=== PATIENT | female | born 1955 | race Caucasian/White ===

== ENCOUNTER 2016-09-25 09:53 | Inpatient (IN) | payer OTHER ==
[2016-09-14 13:52] VITALS: BMI 26.0
[~2016-09-25] VITALS: Ht 162.6 cm; Wt 70.5 kg
[~2016-09-25 09:53] MED LIST: AMLO-110 PO; ATROPINE SULFATE 0.1 MG/ML 5ML SYR IV PRN; CEFAZOLIN 2000 MG/60 ML D5W IV SCH; CeleBREX 200 MG CAP PO SCH; DOXY100C76 PO; EpHEDrine SULFATE INJ 50 MG/ML AMP IV PRN; HYDROmorphone INJ 1 MG/ML SYR IV PRN; LACTATED RINGER'S 1000ML 1,000 ML IV SCH; ONDANSETRON INJ 2 MG/ML 2 ML VIAL IV PRN; PREGABALIN 75 MG CAP PO SCH
[2016-09-25 10:25] VITALS: BP 160/86; PULSE 97; TEMP 36.8; O2SAT 97; Ht 162.6 cm; Wt 70.5 kg
[2016-09-25] MEDS ORDERED: MIDAZOLAM HCL 1 MG/ML 2ML VIAL ONE (11:29)
[2016-09-25] MEDS ORDERED: FENTANYL CITRATE INJ 50 MCG/1 ML 2 ML VIAL ONE ×3 (11:29→15:00)
[2016-09-25] MEDS ORDERED: ROCURONIUM BROMIDE 10 MG/ML 5 ML VIAL ONE ×2 (11:30→13:50)
[2016-09-25] MEDS ORDERED: PROPOFOL IV EMULSION 10 MG/ML 20 ML VIAL IV ONE (11:30)
[2016-09-25] MEDS ORDERED: ONDANSETRON INJ 2 MG/ML 2 ML VIAL ONE (11:30)
[2016-09-25] MEDS ORDERED: DEXAMETHASONE SOD INJ 4 MG/ML VIAL ONE (11:30)
[2016-09-25] MEDS ORDERED: LIDOCAINE HCL 2% 2 ML VIAL (20MG/ML) ONE (11:30)
--- NOTE | 2016-09-25 12:04 | History and Physical ---
History & Physical Date Sep 25, 2016. Chief Complaint LBP and BLE pain, L>R History of Present Illness The patient is a 61 year old female with complaints of above that are chronic and progressive. She has been treated conservatively without lasting relief on an outpatient basis. She denies numbness at rest. no weakness. quality of life is compromised. Her xrays and MRI show Lumbar degenerative scoliosis and spinal stenosis, with multielevel degen changes. Past Medical/Surgical History HTN OA Hyster L CTR Reflux Additional History Hepatic Disease: No Endocrine Disorder: No Kidney Disease: No Hypertension: Yes Heart Disease: No Bleeding Tendencies: No Infectious Diseases: No Allergies Coded Allergies: No Known Allergies (Unverified , 09/25/16) Home Medications Scheduled Amlodipine (Norvasc), 5 MG PO HS Scheduled PRN Doxycycline Monohydrate (Monodox), 100 MG PO UD PRN for RN Physical Examination Skin: warm/dry Eyes: normal inspection, sclerae normal ENT: normal ENT inspection Head: normocephalic, atraumatic Neck: supple, trachea midline Respiratory/Chest: lungs clear, no respiratory distress Cardiovascular: regular rate, rhythm Back: normal inspection Extremities: normal inspection, normal range of motion Neurologic/Psych: no motor/sensory deficits, alert, normal reflexes, oriented x 3 Diagnosis L3-5 stenosis, lumbar scoliosis Plan of Treatment L3-5 decompression, L2-S1 PSF
[2016-09-25] MEDS ORDERED: OXYC-57 PO (12:15)
[2016-09-25] MEDS ORDERED: THROMBIN FOR SOLN 20000 UNIT KIT ONE ×3 (12:16→13:17)
--- NOTE | 2016-09-25 12:16 | Discharge Instructions ---
Discharge Instructions Admission Reason for Admission: Lumbar Spinal Stenosis Discharge Discharge Diagnosis / Problem: Lumbar Stenosis Discharge Goals Goal(s): Decrease discomfort, Improve function, Increase independence Activity Recommendations Activity Limitations: as noted below Lifting Limitations: no more than 5 pounds Exercise/Sports Limitations: until after follow-up appointment May Resume Sexual Activity: after follow-up appointment Shower/Bathe: may shower/bathe in 3 days . Instructions / Follow-Up Instructions / Follow-Up ACTIVITY RECOMMENDATIONS: SELF CARE INSTRUCTIONS AFTER THORACIC/LUMBAR FUSIONS 1. You may walk to your tolerance. It is good exercise for your legs and back. Expect some back and intermittent leg aches and pains. 2. You may perform "counter-top" level activities (make a sandwich, sandra with a project, etc.). 3. No bending or lifting of more than 10 pounds or back twisting of any nature (roll like a log when turning in bed). 4. You may ride in a car for 20-30 minutes at a time. No driving until after your first visit with your doctor. 5. Frequent changes of position and restricting sitting to 30 minutes at a time will help limit the amount of back spasms and stiffness you may experience. 6. You may discontinue the use of ambulatory aids (cane, crutches, etc.) once your strength and confidence allow. 7. You may hospital coordinator the shower and let water strike your incision when you arrive home at least once daily. Do not take a tub bath, sit in a hot tub or go into a swimming pool until after your first recheck in the office. SPECIAL CARE INSTRUCTIONS: VERY IMPORTANT TO READ AND REVIEW A. Your surgical incision has been closed with a cosmetic suture under the skin that will dissolve in about 6 weeks. In 14 days, you can use a pair of clean scissors and cut the suture that is left outside of the skin at the ends of your incision. 1. The small skin tapes can be removed 7 days after surgery if they have not fallen off by that point. 2. You may keep the wound open to air as much as possible to promote healing after post-op day number 5 unless told otherwise by your doctor. 3. If you think the wound looks like it is becoming infected (redness or worsening drainage) and/or you are experiencing fever, chill or worsening back pain and muscle spasms, contact the office so that we may evaluate you as soon as possible. B. Complications are uncommon, but please contact us if you have any signs or symptoms of: 1. wound infection (fever higher than 102.5 degrees F, redness, separation of wound, drainage, or increasing pain from the incision) 2. blood clots in legs (pain, swelling, redness and warmth in legs) 3. urinary tract infection (fever higher than 102.5 degrees F, burning upon urination or increased frequency of urination) 4. nerve problems (inability to walk on your toes or heels, numbness, loss of bowel or bladder control) 5. any other symptoms that concern you C. Please call the office at if you have any concerns or questions about your operation or recovery. D. No smoking! Smoking drastically decreases the chance of a solid fusion. E. Do not take any anti-inflammatory medications (Indocin, Advil, Motrin, Aspirin, Naprosyn, etc.) as these may inhibit the chance of a solid fusion. Tylenol is okay to take for pain. MANAGING PAIN AFTER SPINAL SURGERY 1. Narcotic medication is intended for short-term use and will be provided for surgical pain. Surgical pain usually lasts for a period of 4-6 weeks. Narcotic medication includes Percocet, Vicodin, Darvocet, Tylenol #3 or Lortab. 2. Longer-term pain is more appropriately treated with non-narcotic medication such as Tylenol ES. 3. Muscle spasm is not appropriately treated with narcotics. Muscle relaxers such as Soma, Flexeril or Skelaxin can be used along with Tylenol ES. 4. Remember that we all live with some "aches and pains". This is not unusual or uncommon after an injury or as we get older. a. Back pain is expected and may include muscle spasms for 4 to 6 weeks after surgery. The pain should gradually improve. If the pain worsens for no apparent reason, please contact the office. b. Intermittent leg pain may also be experienced and should not be concerned about unless it worsens for no apparent reason. If so, please contact the office. 5. We will provide appropriate medication within the normal guidelines of their prescribed use. We will also be very cautious and aware of potential abuse and extended duration of patients' medication needs. a. Pain medications are for your comfort and to assist with sleep and rest so that the tissue can heal. They are not provided in order to return to normal activity and should not be used through the day. To do so or worsening pain at night can result from ongoing tissue damage and development of tolerance to the prescribed medicine. 6. Please allow 2-3 days to process refills. Prescriptions will not be mailed but must be picked up at the office. FOLLOW UP VISIT: Keep your scheduled follow-up appointment. Any questions, please call the office at . Current Hospital Diet Patient's current hospital diet: Discharge Diet Recommended Diet: Regular Diet Pending Studies Studies pending at discharge: no Medical Emergencies . Who to Call and When: Medical Emergencies: If at any time you feel your situation is an emergency, please call 911 immediately. . Non-Emergent Contact Non-Emergency issues call your: Surgeon Call Non-Emergent contact if: temperature is above 101, your pain is not controlled, your pain is worsening, your pain is unusual for you, your pain is concerning you, wound has increased drainage, wound has increased redness, wound has increased pain, you have any medication questions . "Provider Documentation" section prepared by Brian Morris. VTE Core Measure Inpt VTE Proph given/why not?: Corey Avila
[2016-09-25] MEDS ORDERED: BACITRACIN 50000 UNIT VIAL ONE (12:17)
[2016-09-25] MEDS ORDERED: BUPIVACAINE/EPINEPHRINE 0.5% MPF 1:200,000 30 ML VIAL ONE (12:17)
[2016-09-25] MEDS ORDERED: THROMBIN 5000 UNITS KIT ONE (12:17)
[2016-09-25] MEDS ORDERED: HEPARIN SOD (PORCINE) 1000 UNIT/ML 10 ML VIAL ONE ×2 (12:17→12:51)
[2016-09-25] MEDS ORDERED: HYDROmorphone INJ 2 MG/ML SYR/VIAL ONE (13:50)
[2016-09-25] MEDS ORDERED: ESMOLOL HCL 10 MG/ML 10 ML VIAL ONE (14:14)
[2016-09-25] MEDS ORDERED: SODIUM CHLORIDE 0.9% 1000ML 1,000 ML IV SCH (14:17)
--- NOTE | 2016-09-25 14:17 | [facility] Post Operative Brief Note ---
Immediate Operative Summary Operative Date Sep 25, 2016. Pre-Operative Diagnosis L3-5 stenosis, lumbar scoliosis Post-Operative Diagnosis L3-5 stenosis, lumbar scoliosis Procedure(s) Performed L3-5 decompression, L2-S1 PSF Surgeon Dr. Ricci Mosquera Lunchroom Monitor Surgeon(s) Brian Morris PA-C Estimated Blood Loss 300 Findings dict Specimens None per surgeon
[2016-09-25] MEDS ORDERED: FLOSEAL HEMOSTATIC MATRIX 10ML TOP ONE (14:25)
[2016-09-25] MEDS ORDERED: hydrOXYzine HCL 25 MG TAB PO PRN (14:30)
[2016-09-25] MEDS ORDERED: BISACODYL 10 MG SUPP PR PRN (14:30)
[2016-09-25] MEDS ORDERED: FAMOTIDINE 20 MG TAB PO PRN (14:30)
[2016-09-25] MEDS ORDERED: PROMETHAZINE HCL INJ 12.5 MG in SODIUM CHLORIDE 0.9% 50ML 50 ML IV PRN (14:30)
[2016-09-25] MEDS ORDERED: SOD PHOSPHATE/SOD BIPHOSPHATE ENEMA 132 ML BTL PR PRN (14:30)
[2016-09-25] MEDS ORDERED: ALUMINUM/MAGNESIUM SUSP 30 ML UDC PO PRN (14:30)
[2016-09-25] MEDS ORDERED: BEER 1 CAN PO PRN ×2 (14:30)
[2016-09-25] MEDS ORDERED: NALOXONE HCL 0.4 MG/1 ML VIAL/CARP IV PRN ×2 (14:30)
[2016-09-25] MEDS ORDERED: MAGNESIUM HYDROXIDE SUSP 30 ML UDC PO PRN (14:30)
[2016-09-25] MEDS ORDERED: METOCLOPRAMIDE HCL INJ 5 MG/ML 2 ML VIAL IV PRN (14:30)
[2016-09-25] MEDS ORDERED: ONDANSETRON INJ 2 MG/ML 2 ML VIAL IV PRN (14:30)
--- NOTE | 2016-09-25 14:32 | DIAGNOSTIC IMAGING REPORT ---
Lumbar spine LUMBAR SPINE 2 OR 3 VIEW CLINICAL HISTORY: L2-S1 neck pain TECHNIQUE: Image intensifier COMPARISON STUDY: None FINDINGS: Findings consistent with a lumbar laminectomy and fusion. IMPRESSION: Lumbar laminectomy and fusion Electronically signed by: Massimo Hansen M.D. 09/25/2016 2:30 PM Dictated Date/Time: 09/25/2016 2:30 PM
[2016-09-25] MEDS ORDERED: MoRPHine SULFATE 1 MG/ML 50 ML PCA CASS ONE (14:35)
[2016-09-25] MEDS: FENTANYL CITRATE INJ 50 MCG/1 ML 2 ML VIAL IV PRN ×4 (15:02→15:17)
--- NOTE | 2016-09-25 15:29 | Anesthesiology Progress Note ---
Anesthesia Post Op Note Date & Time Sep 25, 2016 at 15:28 Vital Signs Pain Intensity: 3 Vital Signs Past 12 Hours Date Time Temp Pulse Resp B/P Pulse Ox O2 Delivery O2 Flow Rate FiO2 09/25/16 15:20 77 16 128/85 96 Nasal Cannula 4 09/25/16 15:10 83 16 140/71 98 Nasal Cannula 4 09/25/16 15:00 86 16 139/76 100 Mask 10 09/25/16 14:50 94 16 143/80 100 Mask 10 09/25/16 14:40 88 16 132/75 96 Mask 10 09/25/16 14:32 36.6 101 16 156/84 100 Mask 10 09/25/16 10:25 36.8 97 20 160/86 97 Room Air Notes Mental Status: alert / awake / arousable, participated in evaluation Pt Amnestic to Procedure: Yes Nausea / Vomiting: adequately controlled Pain: adequately controlled Airway Patency, RR, SpO2: stable & adequate BP & HR: stable & adequate Hydration State: stable & adequate Anesthetic Complications: no major complications apparent
[2016-09-25] MEDS: SODIUM CHLORIDE 0.9% 1000ML 1,000 ML IV SCH (15:50)
[2016-09-25] MEDS: MoRPHine SULFATE 1 MG/ML 50 ML PCA CASS IV PRN ×2 (15:52→22:41)
[2016-09-25 16:21] VITALS: BP 142/87; PULSE 78; TEMP 36.8; O2SAT 98
--- NOTE | 2016-09-25 16:27 | OPERATIVE REPORT ---
DATE OF OPERATION: 09/25/2016 PREOPERATIVE DIAGNOSES: 1. Lumbar scoliosis. 2. Lumbar spinal stenosis L3-L4, L4-L5. 3. Right L3-L4 foraminal disc herniation. POSTOPERATIVE DIAGNOSES: Same. PROCEDURES: 1. L3 and L4 laminectomies with right L3-L4 and L4-L5 facetectomies. 2. Segmental pedicle screw instrumentation -- bilateral L2, L3, L4, L5 and S1 with K2M [place] pedicle screws. 3. Posterior lateral fusion L2-S1 -- bilateral with Infuse BMP on a collagen sponge, tricalcium phosphate, local bone, bone putty and bone marrow aspirate. 4. Bilateral iliac crest bone marrow aspiration, stem cell concentration with Arteriocyte and application of bone graft. SURGEON: Dr. Mosquera. LIFE SKILLS EDUCATOR: Brian Morris PA-C. Please note he participated in all portions of the procedure and was critical for performance of procedure, participated in positioning, prepping, draping, retraction, and wound closure. ANESTHESIA: General endotracheal anesthesia. COMPLICATIONS: None. ESTIMATED BLOOD LOSS: 300 mL. IV FLUIDS: Per anesthesia record. PROCEDURE IN DETAIL: After identification of patient and operative level, she was brought to the OR where she underwent induction of general anesthesia. She was then positioned prone on Camron OR table with all bony prominences well padded. Care was taken to avoid pressure on the periorbital area. Lumbosacral area was sterilely prepped and draped in usual fashion. Antibiotics were administered. Time-out was performed. Level was confirmed and skin incision was infiltrated with 0.5% Marcaine with epinephrine. I made skin incision from spinous process of L1 to the sacrum, performed posterior exposure, placed Gelpi retractors, confirmed level and identified the operative levels with fluoroscopy. I then did a midline decompression with removal of the L3-L4 lamina and takedown ligamentum flavum at L3-L4 and L4-L5. I removed majority of the facets on the right at L3-L4, L4-L5 to facilitate foraminal decompression. There was foraminal disc herniation compressing the L3 nerve root on the right that was removed. I then palpated the nerve roots that were decompressed from L3-L5 bilaterally. I placed pedicle screws bilaterally at L2, L3, L4, L5 and S1 with K2M [place] pedicle screws. I checked position with fluoroscopy. She was noted to be mildly osteopenic during screw placement but I felt the purchase was acceptable. I then aspirated bone marrow from both iliac crests via separate stab incision with Jamshidi needles, concentrated with Arteriocyte, applied the bone graft medication coordinator. I then lowered the Elio frame to restore lordosis, applied rods and end caps for final tightening as well as crosslink and irrigated with bacitracin solution. I decorticated the transverse process from L2 to the sacral ala bilaterally with a high speed lawson and decorticated the facets as well. I then packed the lateral gutters from L2 to the sacral ala with bone graft mixture as above and then closed in layered fashion over BRIGIDO drain. All sponge and needle counts were correct at the end of the case. I attest to the content of the Intraoperative Record and any orders documented therein. Any exceptio ns are noted below.
[2016-09-25 16:52] VITALS: BP 138/85; PULSE 81; TEMP 36.4; O2SAT 96
[2016-09-25 17:56] VITALS: BP 138/72; PULSE 79; TEMP 36.7; O2SAT 100
[2016-09-25] MEDS ORDERED: THIAMINE HCL 50 MG TAB PO ONE (18:15)
[2016-09-25] MEDS ORDERED: LORAZEPAM INJ 1 MG in SYRINGE 0.5 ML IV PRN (18:15)
[2016-09-25 18:49] VITALS: BP 127/81; PULSE 71; TEMP 36.6; O2SAT 99
[2016-09-25] MEDS: CEFAZOLIN IV 1,000 MG in DEXTROSE 5% 50ML 50 ML IV SCH (19:45)
[2016-09-25] MEDS: DEXAMETHASONE INJ 6 MG in SYRINGE 0 ML IV SCH (19:45)
[2016-09-25] MEDS: LORAZEPAM 1 MG TAB PO SCH (19:45)
[2016-09-25] MEDS: AMLODIPINE BESYLATE 5 MG TAB PO SCH (19:46)
[2016-09-25] MEDS: DOCUSATE SODIUM/SENNA 50/8.6MG TAB PO SCH (19:46)
[2016-09-25 23:34] VITALS: BP 120/79; PULSE 73; TEMP 36.4; O2SAT 98
--- NOTE | 2016-09-26 00:03 | INTERNAL MEDICINE CONSULTATION ---
DATE OF CONSULTATION: 09/25/2016 CHIEF COMPLAINT: Status post back surgery. HISTORY OF PRESENT ILLNESS: This is a 61-year-old female with past medical history significant for hypertension, alcoholism, status post back surgery who tolerated the procedure okay. Has some pain at the surgery site. Denies any chest pain or shortness of breath. No nausea or vomiting. No blurred visions. No feeling of hot or cold. No abdominal pain. Resting comfortably. The patient says she drinks about 12-pack of beers every day. Lately, she is drinking more since her mom , but she says she never had withdrawal symptoms in the past. She stopped drinking for 1 week last year and did not have any withdrawal symptoms. ALLERGIES: No known drug allergies. PAST MEDICAL HISTORY: As mentioned above. PAST SURGICAL HISTORY: Hysterectomy and lipoma resection. MEDICATIONS: The patient is on amlodipine 5 mg p.o. at bedtime. SOCIAL HISTORY: No smoking history. Alcohol; drinks 12 packs a day for several years. REVIEW OF SYSTEMS: As per HPI. Rest of review of systems is negative. PHYSICAL EXAMINATION: GENERAL: The patient is of moderate build, not in distress. VITAL SIGNS: Temperature 36.7, pulse 79, respiratory rate 16, blood pressure 138/72 and oxygen 100% on 4 liters. HEENT: No pallor, no icterus. NECK: No JVD, no neck masses, no carotid bruits. CARDIOVASCULAR: S1, S2 heard, regular rate and rhythm, no murmur, no gallop. RESPIRATORY SYSTEM: Normal AP diameter. No accessory muscle use. No wheezing, no crackles. ABDOMEN: Soft, bowel sounds present. Nontender. No distention. CENTRAL NERVOUS SYSTEM: Nonfocal. EXTREMITIES: No edema. No erythema. Moves extremities. ASSESSMENT AND PLAN: This is a 61-year-old female, status post back surgery. 1. Status post back surgery. Pain control, deep venous thrombosis prophylaxis, physical therapy, occupational therapy and disposition as per orthopedics. 2. Hypertension, continue amlodipine. 3. Alcoholism. The patient drinks about 12 packs of beer everyday. She has never had withdrawal symptoms in the past. The patient is currently on Ativan 1 mg p.o. q 8 hours which we will continue and place on IV Ativan 1 mg q. 2 hours p.r.n. for any anxiety or agitation. We will place her on thiamine, multivitamin, folic acid and closely monitor for any withdrawals. LOUIE
[2016-09-26 03:23] VITALS: BP 106/67; PULSE 79; TEMP 36.6; O2SAT 99
[2016-09-26] MEDS: CEFAZOLIN IV 1,000 MG in DEXTROSE 5% 50ML 50 ML IV SCH (03:37)
[2016-09-26] MEDS: LORAZEPAM 1 MG TAB PO SCH ×3 (03:37→20:27)
[2016-09-26] MEDS: DEXAMETHASONE INJ 6 MG in SYRINGE 0 ML IV SCH ×2 (03:37→12:47)
[2016-09-26] MEDS: SODIUM CHLORIDE 0.9% 1000ML 1,000 ML IV SCH (03:44)
[2016-09-26] MEDS ORDERED: HYDROmorphone INJ 1 MG/ML SYR IV PRN (06:00)
[2016-09-26] MEDS ORDERED: DC PCA ONE (06:00)
[2016-09-26] MEDS ORDERED: NURSING DECISION MEDICATION ORDER SCH (06:15)
[2016-09-26 06:29] LABS: BASO % 0.1 %; BASO ABS # 0.01 K/uL (0-0.2); COMPLETE YES; HEMATOCRIT 32.5 % (37-47); IG% 0.3 %; LYMPH % 3.1 %; MEAN CORPUSCULAR HEMOGLOBIN 30.8 pg (25-34); MEAN CORPUSCULAR HGB CONC 33.8 g/dl (32-36); MEAN PLATELET VOLUME 10.9 fL (7.4-10.4); MONO % 3.1 %; NEUT % 93.4 %; PLATELET COUNT 265 K/uL (130-400); RED BLOOD COUNT 3.57 M/uL (4.2-5.4); WHITE BLOOD COUNT 15.96 K/uL (4.8-10.8)
[2016-09-26 07:10] LABS: BUN/CREATININE RATIO 8.7 (10-20); CALCIUM 8.7 mg/dl (8.5-10.1); CREATININE 0.54 mg/dl (0.60-1.20); POTASSIUM 3.9 mmol/L (3.5-5.1)
[2016-09-26] MEDS: OXYCODONE HCL IR 5 MG TAB (IMMEDIATE RELEASE) PO PRN ×2 (07:26→12:53)
--- NOTE | 2016-09-26 07:27 | Orthopedic Progress Note ---
Orthopedic Progress Note Date of Service Sep 26, 2016. Subjective Post OP Day: 1 Reports: complaints (back pain), feeling well, pain controlled w PO medications , Denies: SOB, calf pain, chest pain, light headedness, nausea / vomiting Additional Notes: Doing ok this AM, legs feel "great". Back pain is moderate. Stable night with no complaints. Medically stable this AM. Objective calves soft nontender, N/V intact, capillary refill less than 2 sec., dressing C /D/I, A&O x3, toes mobile, hemovac drainage Date Time Temp Pulse Resp B/P Pulse Ox O2 Delivery O2 Flow Rate FiO2 09/26/16 03:23 36.6 79 18 106/67 99 Nasal Cannula 2.0 09/25/16 23:34 36.4 73 18 120/79 98 Nasal Cannula 2.0 09/25/16 23:00 Nasal Cannula 2.0 09/25/16 18:49 36.6 71 16 127/81 99 Nasal Cannula 4.0 09/25/16 17:56 36.7 79 16 138/72 100 Nasal Cannula 4.0 09/25/16 16:52 36.4 81 16 138/85 96 Nasal Cannula 4.0 09/25/16 16:21 36.8 78 16 142/87 98 Nasal Cannula 4.0 09/25/16 15:50 99 Nasal Cannula 4.0 09/25/16 15:50 Nasal Cannula 4.0 09/25/16 15:20 77 16 128/85 96 Nasal Cannula 4 09/25/16 15:10 83 16 140/71 98 Nasal Cannula 4 09/25/16 15:00 86 16 139/76 100 Mask 10 09/25/16 14:50 94 16 143/80 100 Mask 10 09/25/16 14:40 88 16 132/75 96 Mask 10 09/25/16 14:32 36.6 101 16 156/84 100 Mask 10 09/25/16 10:25 36.8 97 20 160/86 97 Room Air Laboratory Results 24 Hours: Test 09/26/16 06:00 White Blood Count 15.96 K/uL Red Blood Count 3.57 M/uL Hemoglobin 11.0 g/dL Hematocrit 32.5 % Mean Corpuscular Volume 91.0 fL Mean Corpuscular Hemoglobin 30.8 pg Mean Corpuscular Hemoglobin Concent 33.8 g/dl Platelet Count 265 K/uL Mean Platelet Volume 10.9 fL Neutrophils (%) (Auto) 93.4 % Lymphocytes (%) (Auto) 3.1 % Monocytes (%) (Auto) 3.1 % Eosinophils (%) (Auto) 0.0 % Basophils (%) (Auto) 0.1 % Neutrophils # (Auto) 14.90 K/uL Lymphocytes # (Auto) 0.50 K/uL Monocytes # (Auto) 0.50 K/uL Eosinophils # (Auto) 0.00 K/uL Basophils # (Auto) 0.01 K/uL Assessment & Plan Assessment: s/p lumbar decompression and fusion Plan: Pain control: will add Toradol PT today D/C salazar DVT prophylaxis Concern for alcohol withdrawal, appreciate medical input, continue Ativan Disposition pending
[2016-09-26 07:42] VITALS: BP 119/69; PULSE 75; TEMP 36.7; O2SAT 97
[2016-09-26] MEDS: CEROVITE ADV FORMULA TAB PO SCH (08:36)
[2016-09-26] MEDS: THIAMINE HCL 100 MG TAB PO SCH (08:36)
[2016-09-26] MEDS ORDERED: INFLUENZA ADMINISTRATION CHARGE ONE (09:00)
[2016-09-26] MEDS ORDERED: INFLUENZA VIRUS QUAD VACCINE 0.5 ML SYR IM. ONE (09:00)
[2016-09-26 11:09] VITALS: BP 160/79; PULSE 95; TEMP 36.7; O2SAT 98
[2016-09-26 15:09] VITALS: BP 131/78; PULSE 89; TEMP 36.9; O2SAT 96
--- NOTE | 2016-09-26 18:58 | Progress Note ---
Medicine Progress Note Date & Time of Visit: Sep 26, 2016 at 18:43. Subjective Pt was seen and examined lying in bed with no distress Pt said that she is having alot of pain in her back Denies any chest pain, palpitation, Dizziness, hallucination and SOB Objective Last 8 Hrs Date Time Temp Pulse Resp B/P Pulse Ox O2 Delivery O2 Flow Rate FiO2 09/26/16 15:50 Room Air 09/26/16 15:09 36.9 89 17 131/78 96 Room Air 09/26/16 11:09 36.7 95 18 160/79 98 Room Air Physical Exam: General- No acute distress Head- atraumatic Eyes- PERRL, EOMI, no nystagmus ENT- oropharynx clear Neck- supple, no JVD Lungs- clear to auscultation and percussion Heart- regular rhythm Abdomen- normal bowel sounds, soft Extremities-no calf tenderness Neuro- alert, oriented x 3; PERRL, EOMI; no facial palsy; no dysarthria, finger to nose intact bilaterally, no tremor Skin- warm & dry Laboratory Results: Last 24 Hours Test 09/26/16 06:00 White Blood Count 15.96 K/uL Red Blood Count 3.57 M/uL Hemoglobin 11.0 g/dL Hematocrit 32.5 % Mean Corpuscular Volume 91.0 fL Mean Corpuscular Hemoglobin 30.8 pg Mean Corpuscular Hemoglobin Concent 33.8 g/dl Platelet Count 265 K/uL Mean Platelet Volume 10.9 fL Neutrophils (%) (Auto) 93.4 % Lymphocytes (%) (Auto) 3.1 % Monocytes (%) (Auto) 3.1 % Eosinophils (%) (Auto) 0.0 % Basophils (%) (Auto) 0.1 % Neutrophils # (Auto) 14.90 K/uL Lymphocytes # (Auto) 0.50 K/uL Monocytes # (Auto) 0.50 K/uL Eosinophils # (Auto) 0.00 K/uL Basophils # (Auto) 0.01 K/uL RDW Standard Deviation 43.9 fL RDW Coefficient of Variation 13.2 % Immature Granulocyte % (Auto) 0.3 % Immature Granulocyte # (Auto) 0.05 K/uL Sodium Level 138 mmol/L Potassium Level 3.9 mmol/L Chloride Level 103 mmol/L Carbon Dioxide Level 25 mmol/L Anion Gap 10.0 mmol/L Blood Urea Nitrogen 5 mg/dl Creatinine 0.54 mg/dl Est Creatinine Clear Calc Drug Dose 106.7 ml/min Estimated GFR () 118.9 Estimated GFR (Non- 102.6 BUN/Creatinine Ratio 8.7 Random Glucose 153 mg/dl Calcium Level 8.7 mg/dl Assessment & Plan Back Pain s/p lumbar decompression and fusion day # [address] Ramirez Continue pain control as per ortho Incentive spirometry Monitor h/h PT eval Alcohol abuse No signs of alcohol withdraw Continue ativan for agitation Continue folate and thiamine Continue monitor pt HTN Stable continue pain med DVT px as per ortho CODE STATUS FULL CODE Current Inpatient Medications: Current Inpatient Medications Medications (Trade) Dose Ordered Sig/Christian Route Start Time Stop Time Status Last Admin Dose Admin Amlodipine Besylate (Norvasc Tab) 5 mg HS PO 09/25/16 21:00 10/25/16 20:59 09/25/16 19:46 5 MG Non-Formulary Medication 1 can 1 can Q2H PRN PO 09/25/16 14:30 10/25/16 14:29 Promethazine HCl/ Sodium Chloride (Phenergan Inj/ Nss 50ml) 50.5 ml @ 202 mls/hr Q6H PRN IV 09/25/16 14:30 10/25/16 14:29 Ondansetron HCl (Zofran Inj) 4 mg Q6H PRN IV 09/25/16 14:30 10/25/16 14:29 Metoclopramide HCl (Reglan Inj) 10 mg Q6H PRN IV 09/25/16 14:30 10/25/16 14:29 Polyethylene (Miralax Powder Packet) 17 gm Q6 PO 09/27/16 06:00 10/27/16 05:59 Bisacodyl (Dulcolax Supp) 10 mg DAILY PRN AR 09/25/16 14:30 10/25/16 14:29 Magnesium Hydroxide (Milk Of Magnesia Susp) 30 ml DAILY PRN PO 09/25/16 14:30 10/25/16 14:29 Hydromorphone HCl (Dilaudid Inj) 0.5-1mg prn moder... Q3H PRN IV 09/26/16 06:00 10/10/16 05:59 09/26/16 16:01 0.5 MG Oxycodone HCl (Roxicodone Immediate Rel Tab) 5-10mg prn moderate to sev... Q4H PRN PO 09/26/16 06:00 10/10/16 05:59 09/26/16 12:53 10 MG Naloxone HCl (Narcan Inj) 0.1 mg Q5M PRN IV 09/25/16 14:30 10/25/16 14:29 Senna/Docusate Sodium (Senokot S Tab) 2 tab HS PO 09/25/16 21:00 10/25/16 20:59 09/25/16 19:46 2 TAB Sodium Biphosphate/ Sodium Phosphate (Fleet Enema) 132 ml ONE PRN AR 09/25/16 14:30 10/25/16 14:29 Hydroxyzine HCl (Vistaril Tab) 25 mg Q8H PRN PO 09/25/16 14:30 10/25/16 14:29 Al Hydroxide/Mg Hydroxide (Maalox Susp) 30 ml Q6H PRN PO 09/25/16 14:30 10/25/16 14:29 Famotidine (Pepcid Tab) 20 mg Q12 PRN PO 09/25/16 14:30 10/25/16 14:29 Lorazepam (Ativan Tab) 1 mg Q8H PO 09/25/16 20:00 10/25/16 19:59 09/26/16 11:58 1 MG Thiamine HCl (Vitamin B-1 Tab) 100 mg QAM PO 09/26/16 09:00 10/26/16 08:59 09/26/16 08:36 100 MG Folic Acid (Folvite Tab) 1 mg QAM PO 09/26/16 09:00 10/26/16 08:59 09/26/16 08:36 1 MG Multivitamins/ Minerals 1 tab 1 tab QAM PO 09/26/16 09:00 10/26/16 08:59 09/26/16 08:36 1 TAB Lorazepam/Syringe (Ativan Inj/ Syringe) 1 ml @ 0.5 mls/min Q2HWA PRN IV 09/25/16 18:15 10/25/16 18:14
[2016-09-26 19:28] VITALS: BP 133/74; PULSE 92; TEMP 37; O2SAT 95
[2016-09-26] MEDS: DOCUSATE SODIUM/SENNA 50/8.6MG TAB PO SCH (20:27)
[2016-09-26] MEDS: AMLODIPINE BESYLATE 5 MG TAB PO SCH (20:27)
[2016-09-26 23:27] VITALS: BP 128/77; PULSE 92; TEMP 37.2; O2SAT 94
[2016-09-27] MEDS: LORAZEPAM 1 MG TAB PO SCH ×3 (04:07→19:58)
[2016-09-27] MEDS: POLYETHYLENE (MIRALAX) 17 GM PACK PO SCH ×4 (05:42→23:40)
[2016-09-27 07:07] LABS: HEMATOCRIT 30.4 % (37-47); MEAN CELL VOLUME 91.8 fL (80-100); MEAN CORPUSCULAR HEMOGLOBIN 31.1 pg (25-34); MEAN CORPUSCULAR HGB CONC 33.9 g/dl (32-36); MEAN PLATELET VOLUME 10.5 fL (7.4-10.4); PLATELET COUNT 244 K/uL (130-400); RED BLOOD COUNT 3.31 M/uL (4.2-5.4); WHITE BLOOD COUNT 16.63 K/uL (4.8-10.8)
[2016-09-27 07:09] VITALS: BP 138/81; PULSE 98; TEMP 37; O2SAT 96
[2016-09-27] MEDS: THIAMINE HCL 100 MG TAB PO SCH (08:51)
[2016-09-27] MEDS: CEROVITE ADV FORMULA TAB PO SCH (08:52)
[2016-09-27] MEDS: OXYCODONE HCL IR 5 MG TAB (IMMEDIATE RELEASE) PO PRN (08:53)
[2016-09-27] MEDS: HYDROmorphone HCL 2 MG TAB PO PRN ×2 (10:40→23:53)
--- NOTE | 2016-09-27 12:29 | Orthopedic Progress Note ---
Orthopedic Progress Note Date of Service Sep 27, 2016. Subjective Reports: complaints (back pain), pain controlled w PO medications, Denies: SOB, calf pain, chest pain, light headedness, nausea / vomiting Additional Notes: She reports she is moving but still has pain. Does not feel pain is controlled with oxycodone. No leg pain. No numbness or tingling. Stable medically Objective calves soft nontender, N/V intact, capillary refill less than 2 sec., dressing C /D/I, A&O x3, toes mobile, hemovac drainage Date Time Temp Pulse Resp B/P Pulse Ox O2 Delivery O2 Flow Rate FiO2 09/27/16 07:45 Room Air 09/27/16 07:09 37.0 98 16 138/81 96 Room Air 09/27/16 00:00 Room Air 09/26/16 23:27 37.2 92 16 128/77 94 Room Air 09/26/16 19:28 37.0 92 17 133/74 95 Room Air 09/26/16 15:50 Room Air 09/26/16 15:09 36.9 89 17 131/78 96 Room Air Laboratory Results 24 Hours: Test 09/27/16 06:50 Hematocrit 30.4 % Hemoglobin 10.3 g/dL Assessment & Plan Assessment: s/p lumbar decompression and fusion Plan: Pain control: will switch to Dilaudid oral PT continued, to consider rehab DVT prophylaxis Concern for alcohol withdrawal, appreciate medical input, continue Ativan Disposition pending
[2016-09-27 15:13] VITALS: BP 126/73; PULSE 103; TEMP 36.9; O2SAT 96
--- NOTE | 2016-09-27 18:49 | Progress Note ---
Medicine Progress Note Date & Time of Visit: Sep 27, 2016 at 18:45. Subjective Pt was seen and examined Sitting in bed very comfortable with no distress Pt said that she feels fine today she said that she did well during PT denies any chest pain, palpitation, dizziness and SOB Objective Last 8 Hrs Date Time Temp Pulse Resp B/P Pulse Ox O2 Delivery O2 Flow Rate FiO2 09/27/16 15:55 Room Air 09/27/16 15:13 36.9 103 16 126/73 96 Room Air Physical Exam: General- No acute distress Head- atraumatic Eyes- PERRL, EOMI, no nystagmus ENT- oropharynx clear Neck- supple, no JVD Lungs- clear to auscultation and percussion Heart- regular rhythm Abdomen- normal bowel sounds, soft Extremities-no calf tenderness Neuro- alert, oriented x 3; PERRL, EOMI; no facial palsy; no dysarthria, finger to nose intact bilaterally, no tremor Skin- warm & dry Laboratory Results: Last 24 Hours Test 09/27/16 06:50 White Blood Count 16.63 K/uL Red Blood Count 3.31 M/uL Hemoglobin 10.3 g/dL Hematocrit 30.4 % Mean Corpuscular Volume 91.8 fL Mean Corpuscular Hemoglobin 31.1 pg Mean Corpuscular Hemoglobin Concent 33.9 g/dl RDW Standard Deviation 45.4 fL RDW Coefficient of Variation 13.7 % Platelet Count 244 K/uL Mean Platelet Volume 10.5 fL Assessment & Plan Back Pain s/p lumbar decompression and fusion day # [address] Ramirez Continue pain control as per ortho Continue PT/OT Incentive spirometry Monitor h/h Alcohol abuse No signs of alcohol withdraw Continue ativan for agitation Continue folate and thiamine Continue monitor pt Stable Elevated WBC Mostly reactive due to the surgery afebrile continue monitor cbc HTN Stable continue pain med DVT px as per ortho CODE STATUS FULL CODE Current Inpatient Medications: Current Inpatient Medications Medications (Trade) Dose Ordered Sig/Christian Route Start Time Stop Time Status Last Admin Dose Admin Amlodipine Besylate (Norvasc Tab) 5 mg HS PO 09/25/16 21:00 10/25/16 20:59 09/26/16 20:27 5 MG Non-Formulary Medication 1 can 1 can Q2H PRN PO 09/25/16 14:30 10/25/16 14:29 Promethazine HCl/ Sodium Chloride (Phenergan Inj/ Nss 50ml) 50.5 ml @ 202 mls/hr Q6H PRN IV 09/25/16 14:30 10/25/16 14:29 Ondansetron HCl (Zofran Inj) 4 mg Q6H PRN IV 09/25/16 14:30 10/25/16 14:29 Metoclopramide HCl (Reglan Inj) 10 mg Q6H PRN IV 09/25/16 14:30 10/25/16 14:29 Polyethylene (Miralax Powder Packet) 17 gm Q6 PO 09/27/16 06:00 10/27/16 05:59 09/27/16 17:40 17 GM Bisacodyl (Dulcolax Supp) 10 mg DAILY PRN ND 09/25/16 14:30 10/25/16 14:29 Magnesium Hydroxide (Milk Of Magnesia Susp) 30 ml DAILY PRN PO 09/25/16 14:30 10/25/16 14:29 Hydromorphone HCl (Dilaudid Inj) 0.5-1mg prn moder... Q3H PRN IV 09/26/16 06:00 10/10/16 05:59 09/26/16 16:01 0.5 MG Naloxone HCl (Narcan Inj) 0.1 mg Q5M PRN IV 09/25/16 14:30 10/25/16 14:29 Senna/Docusate Sodium (Senokot S Tab) 2 tab HS PO 09/25/16 21:00 10/25/16 20:59 09/26/16 20:27 2 TAB Sodium Biphosphate/ Sodium Phosphate (Fleet Enema) 132 ml ONE PRN ND 09/25/16 14:30 10/25/16 14:29 Hydroxyzine HCl (Vistaril Tab) 25 mg Q8H PRN PO 09/25/16 14:30 10/25/16 14:29 Al Hydroxide/Mg Hydroxide (Maalox Susp) 30 ml Q6H PRN PO 09/25/16 14:30 10/25/16 14:29 Famotidine (Pepcid Tab) 20 mg Q12 PRN PO 09/25/16 14:30 10/25/16 14:29 Lorazepam (Ativan Tab) 1 mg Q8H PO 09/25/16 20:00 10/25/16 19:59 09/27/16 13:50 1 MG Thiamine HCl (Vitamin B-1 Tab) 100 mg QAM PO 09/26/16 09:00 10/26/16 08:59 09/27/16 08:51 100 MG Folic Acid (Folvite Tab) 1 mg QAM PO 09/26/16 09:00 10/26/16 08:59 09/27/16 08:51 1 MG Multivitamins/ Minerals 1 tab 1 tab QAM PO 09/26/16 09:00 10/26/16 08:59 09/27/16 08:52 1 TAB Lorazepam/Syringe (Ativan Inj/ Syringe) 1 ml @ 0.5 mls/min Q2HWA PRN IV 09/25/16 18:15 10/25/16 18:14 Hydromorphone HCl (Dilaudid Tab) 2 mg Q4 PRN PO 09/27/16 10:15 10/11/16 10:14 09/27/16 10:40 2 MG
[2016-09-27] MEDS: AMLODIPINE BESYLATE 5 MG TAB PO SCH (20:48)
[2016-09-27] MEDS: DOCUSATE SODIUM/SENNA 50/8.6MG TAB PO SCH (20:48)
[2016-09-27 23:17] VITALS: BP 149/83; PULSE 111; TEMP 37.1; O2SAT 94
[2016-09-28] MEDS: LORAZEPAM 1 MG TAB PO SCH ×2 (03:41→13:19)
[2016-09-28] MEDS: POLYETHYLENE (MIRALAX) 17 GM PACK PO SCH ×2 (06:06→12:00)
[2016-09-28] MEDS: HYDROmorphone HCL 2 MG TAB PO PRN ×2 (08:16→13:19)
[2016-09-28] MEDS: THIAMINE HCL 100 MG TAB PO SCH (08:16)
[2016-09-28] MEDS: CEROVITE ADV FORMULA TAB PO SCH (08:17)
[2016-09-28 08:36] VITALS: BP 140/80; PULSE 100; TEMP 37.2; O2SAT 94
[2016-09-28 08:46] VITALS: O2SAT 95
[2016-09-28 11:54] VITALS: BP 137/81; PULSE 100; TEMP 37.3; O2SAT 94
[2016-09-28 12:57] VITALS: BP 137/81; PULSE 100; TEMP 37.3; O2SAT 94
--- NOTE | 2016-10-11 11:33 | DISCHARGE SUMMARY ---
PRINCIPAL DIAGNOSIS: Included lumbar scoliosis, spinal stenosis at L3-4, 4-5 and right L3-4 foraminal disc herniation. POSTOPERATIVE DIAGNOSIS: Same. PROCEDURE: L3 and L4 laminectomy with a right L3-4, 4-5 facetectomy, pedicle screw instrumentation L2, 3, 4, 5 and S1, posterolateral fusion L2-S1 and bilateral iliac crest bone marrow aspiration, and stem cell concentration with arteriosus and application of bone graft. SURGEON: Dr. Ricci Mosquera. AIRCRAFT MAINTENANCE DIRECTOR: Brian Morris PA-C. HISTORY OF PRESENT ILLNESS: Please refer to EMR. HOSPITAL COURSE: On 09/25/2016 Ms. Richmond was admitted to [facility] with the above diagnoses. She was taken to preoperative holding where she was identified, evaluated and cleared for surgical management and transported to the operating room, introduced with general endotracheal anesthesia, sterile conditions were set and she successfully underwent the above procedure without complication or issue. She was awakened in stable and satisfactory condition and taken to postoperative recovery where her vital signs and pain were monitored and managed. She was then taken to the orthopedic floor for continued care. Throughout her stay, vital signs, labs and pain were monitored and managed through physician direction. She participated in physical therapy with noted progress. She had no complications or noted issues. DVT and GI prophylactic measures were taken. She had a stable postoperative course. She was evaluated on 09/28/2016 by provider and indicated for return home. On this date, she was discharged from [facility]. DISPOSITION: Home. DISPOSITION CONDITION: Stable. NOTED COMPLICATIONS OR ISSUES: Zero. DISCHARGE INSTRUCTIONS: Please refer to EMR.
== END 2016-09-28 16:45 | disposition home health service (06) | DRG 458 ==
LOC: CANRESERV → ENRESERVTM → ENRESERVDT → C.ACU 09:53 → C.3E 10:07
PROVIDERS: ADMIT Orthopaedic Surgery Orthopaedic Surgery of the Spine; ATTEND Orthopaedic Surgery Orthopaedic Surgery of the Spine
PROC: 0SG3071 Fusion of Lumbosacral Joint with Autologous Tissue Substitute, Posterior Approach, Posterior Column, Open Approach (ICD-10-PCS; principal; 2016-09-25 11:30)
PROC: 0ST20ZZ Resection of Lumbar Vertebral Disc, Open Approach (ICD-10-PCS; principal; 2016-09-25 11:30)
PROC: 3E0V0GB Introduction of Recombinant Bone Morphogenetic Protein into Bones, Open Approach (ICD-10-PCS; principal; 2016-09-25 11:30)
DX: M41.26 Other idiopathic scoliosis, lumbar region (principal); M48.06 Spinal stenosis, lumbar region; M51.26 Other intervertebral disc displacement, lumbar region; I10 Essential (primary) hypertension; K21.9 Gastro-esophageal reflux disease without esophagitis; Z79.899 Other long term (current) drug therapy; F10.20 Alcohol dependence, uncomplicated